=== PATIENT | female | born 1965 | race Caucasian/White ===

== ENCOUNTER 2017-07-22 05:26 | Emergency (ER) | payer BC ==
[~2017-07-22] VITALS: Ht 167.6 cm; Wt 127.0 kg
--- NOTE | ~2017-07-22 | EKG ---
[place] [address] [address] [facility] [address] ELECTROCARDIOGRAM REPORT Name: ESTIVEN EMMANUEL Room #: [facility] [id number] Admission: 07/22/17 Attend Phys: Discharge: 07/22/17 Date of : 61 Report #: [id number] THIS REPORT FOR: //name// [facility] ED Test Date: 2017-07-22 Test Time: 06:08:38 Pat Name: ESTIVEN EMMANUEL Department: Room: Gender: F Tie Cutter: west : 1965 Requested By: Stanley Sherwood Order Number: [id number] MD: Rogers Powers Measurements Intervals [place] Rate: 94 P: 65 [place]: 159 QRS: 30 QRSD: 99 T: 27 QT: 386 QTc: 483 Interpretive Statements Sinus rhythm with atrial premature complexes RSR' in V1 or V2, right VCD Compared to ECG 04/29/2017 02:44:53 nonspecific change in the ST and T-wave segments Atrial premature complexes are now present Electronically Signed On 07-22-2017 8:42:14 GRAIN MILL PRODUCTS INSPECTOR by Rogers Powers [email or web address] <ELECTRONICALLY SIGNED> By: Rogers Powers MD, [facility] 07/22/17 [phone] 0608 Rogers Powers MD, [facility] /EPI
[~2017-07-22 05:26] MED LIST: ADDERALL XR 2020 MG PO; ALBUTEROL INHAL17 GM IH; ALBUTEROL SUL5 MG/M1 INH; ALBUTEROL2.5 MG/31 IH; ALPRAZOLAM 0.50.5 M1 OR; ALPRAZOLAM 0.50.5 M1 PO; ALPRAZOLAM 0.50.5 MG PO; ALPRAZOLAM ER3 MG PO; ALPRAZOLAM PO; AMOXICILLIN875 MG PO; AVELOX 400 MG400 MG PO; AZITHROMYCIN 2250 MG; CELEXA10 MG PO; CHLORPROMAZINE100 MG PO; COLACE 100 MG100 MG PO; COMBIVENT INH; COUMADIN 2.5MG2.5 M1 PO; COUMADIN 4 MG TA4 M1 PO; COUMADIN 5 MG TA5 M1 PO; DESYREL100 MG PO; DESYREL50 MG PO; DIFLUCAN; DIFLUCAN PO; DILAUDID 4 MG TA4 M1 PO; DILAUDID8 MG PO; DOXYCYCLINE 10100 MG PO; DULERA 100 MCG/13 GM IH; DULERA 100 MCG/13 GM INH; DUONEB 2.5-0.5 M3 ML OR; ENDOCET 10-3251 EACH PO; ENOXAPARIN100 MG/1 M SC; FLEXERIL PO; FLONASE 0.05%50 MCG NASAL; FUROSEMIDE 20 M20 MG PO; HYDROCODON-ACE1 EAC5 PO; KEFLEX500 M1 PO; KEFLEX500 MG PO; LASIX 20 MG TAB20 MG PO; LASIX 40 MG TAB40 M2 PO; LASIX 40 MG TAB40 MG GT; LEVOTHYROXIN0.112 M1; LYRICA 75 MG CA75 MG PO; LYRICA PO; LYRICA200 MG PO; MORPHINE SULFAT60 M2 PO; MUCINEX600 MG PO; NORCO 5-325 TA1 EACH PO; OMEPRAZOLE10 MG; OMEPRAZOLE40 MG OR; OPANA ER40 M1 PO; OPANA ER40 MG PO; OPANA10 MG; OPANA10 MG PO; OS-CAL ULTRA T1 EACH PO; OXYCODON-ACETA1 EAC1; OXYCONTIN10 M1 PO; PEPCID40 MG PO; PERCOCET 10-321 EACH PO; POTASSIUM CHLO10 ME1 PO; POTASSIUM20 PO; PREDNISONE 20 M20 MG PO; PREDNISONE 5 MG5 M1; PRILOSEC40 MG PO; PRISTIQ50 M1; PRISTIQ50 MG OR; PRISTIQ50 MG PO; PROAIR HFA8.5 GM INH; PROMETHAZINE HC25 M2 PO; PROVENTIL; RESTORIL30 MG PO; RESTORIL7.5 MG PO; RISPERDAL 1 MG T1 MG PO; RISPERDAL2 MG PO; RISPERDAL4 M1 PO; SINGULAIR 10 MG10 M1 PO; SYNTHROID100 MCG PO; TESSALON PERLE100 MG PO; TIZANIDINE HCL4 M1 PO; TIZANIDINE HCL4 MG PO; TRAZODONE 150150 M1 OR; TRAZODONE HCL PO; TRAZODONE HCL100 MG PO; Trazodone PO; VENTOLIN HFA 1818 GM INH; VENTOLIN HFA INH8 GM IH; VICODIN 5-5001 EACH PO; XANAX 0.5 MG0.5 M1 PO; XANAX 0.5 MG0.5 MG PO; XANAX XR1 MG PO; XANAX XR3 MG PO; ZANAFLEX4 MG PO; ZOLOFT100 MG PO
[2017-07-22] MEDS ORDERED: DOXYCYCLINE 10100 MG PO (06:28)
[2017-07-22] MEDS ORDERED: OXYCODONE HCL 55 MG PO (06:28)
[2017-07-22] MEDS ORDERED: TESSALON PERLE100 MG PO (06:29)
[2017-07-22 06:56] VITALS: BP 153/79
== END 2017-07-22 06:50 | disposition home or self-care (01) ==
LOC: ER 05:26
DX: J06.9 Acute upper respiratory infection, unspecified (principal); J45.909 Unspecified asthma, uncomplicated; K21.9 Gastro-esophageal reflux disease without esophagitis; Z87.01 Personal history of pneumonia (recurrent); E03.9 Hypothyroidism, unspecified; M19.90 Unspecified osteoarthritis, unspecified site; Z90.49 Acquired absence of other specified parts of digestive tract; Z90.710 Acquired absence of both cervix and uterus; K58.9 Irritable bowel syndrome, unspecified; Z87.891 Personal history of nicotine dependence; Z88.6 Allergy status to analgesic agent; Z88.8 Allergy status to other drugs, medicaments and biological substances

== ENCOUNTER 2017-07-23 03:58 | Inpatient (IN) | payer BC ==
[~2017-07-23] VITALS: Ht 167.6 cm; Wt 127.0 kg
--- NOTE | ~2017-07-23 | EKG ---
[address] [place] [address] ELECTROCARDIOGRAM REPORT Name: ESTIVEN EMMANUEL Room #: 417-I ADM IN M.R.#: [id number] Admission: 07/23/17 Attend Phys: Abel Saldana MD Discharge: Date of : 61 Report #: [id number] THIS REPORT FOR: //name// [facility] ED Test Date: 2017-07-23 Test Time: 04:46:49 Pat Name: ESTIVEN EMMANUEL Department: Room: [facility] Gender: F Home Health Outreach Coordinator: SLIM : 1965 Requested By: Sky Pascal Order Number: [id number] MD: Rogers Powers Measurements Intervals [place] Rate: 87 P: 33 SD: 131 QRS: 15 QRSD: 103 T: 22 QT: 416 QTc: 501 Interpretive Statements Sinus rhythm Nonspecific ST and T wave abnormality Prolonged QT interval Compared to ECG 07/22/2017 06:08:38 Low QRS voltage now present Prolonged QT interval now present Atrial premature complex(es) no longer present Electronically Signed On 07-23-2017 9:12:47 MAMMALOGIST by Rogers Powers [email or web address] <ELECTRONICALLY SIGNED> By: Rogers Powers MD, FACC 07/23/17 0912 0446 0446 Rogers Powers MD, [facility] /EPI
[~2017-07-23 03:58] MED LIST changes: +OXYCODONE HCL 55 MG PO
[2017-07-23 04:00] VITALS: BP 159/88
[2017-07-23 04:34] LABS: BE(vivo) 0.9 mmol/L (-2 to +3); PCO2 48.7 mmHg (35.0-45.0); PO2 59.7 mmHg (80.0-100.0); pH 7.361 (7.360-7.450); sO2 89.7 % (92.0-98.0)
[2017-07-23 04:53] LABS: ABSOLUTE NEUTROPHILS 5.5 thou/uL (1.4-8.2); BASOPHILS 0.6 % (0.0-2.0); EOSINOPHILS 1.5 % (0.0-3.0); HEMATOCRIT 35.9 % (37.0-47.0); HEMOGLOBIN 12.2 gm/dL (12.0-15.0); LYMPHOCYTES 25.1 % (24.0-44.0); MCH 31.1 pg (26.0-34.0); MCHC 33.9 g/dL (28.0-37.0); MCV 91.7 fL (80.0-100.0); MONOCYTES 8.6 % (1.0-8.0); PLATELET COUNT 169 thou/uL (150-400); POLYS 64.2 % (36.0-66.0); RBC 3.92 mil/uL (4.20-5.00); RDW 13.7 % (10.5-14.5); WBC 8.6 thou/uL (4.0-11.0)
[2017-07-23 05:03] LABS: ANION GAP 8 mmol/L (7-16); BUN 10 mg/dL (7-18); CALCIUM 8.8 mg/dL (8.5-10.1); CHLORIDE 104 mmol/L (98-107); CO2 29 mmol/L (21-32); CREATININE 0.7 mg/dL (0.6-1.0); GLUCOSE 143 mg/dL (74-106); POTASSIUM 3.8 mmol/L (3.5-5.1); SODIUM 141 mmol/L (136-145)
[2017-07-23 05:11] LABS: TROPONIN-I < 0.04 ng/mL (<0.06)
[2017-07-23 06:27] VITALS: BP 129/47
[2017-07-23 07:20] VITALS: BP 120/62
[2017-07-23 16:15] VITALS: BP 110/60
[2017-07-23 19:12] VITALS: BP 119/67
[2017-07-24 02:54] VITALS: BP 122/66
[2017-07-24 04:29] LABS: HEMATOCRIT 36.9 % (37.0-47.0); HEMOGLOBIN 12.4 gm/dL (12.0-15.0); MCH 30.8 pg (26.0-34.0); MCHC 33.6 g/dL (28.0-37.0); MCV 91.6 fL (80.0-100.0); RBC 4.02 mil/uL (4.20-5.00); WBC 9.1 thou/uL (4.0-11.0)
[2017-07-24 04:38] LABS: CALCIUM 8.6 mg/dL (8.5-10.1); CREATININE 0.8 mg/dL (0.6-1.0); POTASSIUM 3.9 mmol/L (3.5-5.1)
[2017-07-24 07:18] VITALS: BP 119/60
[2017-07-24 16:00] VITALS: BP 121/56
[2017-07-24 19:34] VITALS: BP 95/95
[2017-07-24 22:35] VITALS: BP 111/57
[2017-07-25 04:51] VITALS: BP 130/69
[2017-07-25 08:00] VITALS: BP 126/65
[2017-07-25 16:00] VITALS: BP 141/72
[2017-07-25 19:41] VITALS: BP 137/70
[2017-07-26 04:05] VITALS: BP 128/73
[2017-07-26 07:57] VITALS: BP 131/72
[2017-07-26] MEDS ORDERED: KEFLEX500 M1 PO (08:50)
[2017-07-26] MEDS ORDERED: AZITHROMYCIN 2250 MG PO (08:50)
[2017-07-26] MEDS ORDERED: VENTOLIN HFA 1818 GM INH (08:50)
[2017-07-26] MEDS ORDERED: MEDROL DOSPAK21 TA1 PO (08:51)
[2017-07-26 10:18] VITALS: BP 131/72
== END 2017-07-26 10:40 | disposition home or self-care (01) | DRG 189 ==
LOC: ER 03:58 → 4E 05:43 → EROBS 05:43 → 4E 06:28
PROVIDERS: Emergency Medicine; Hospitalist
DX: J96.01 Acute respiratory failure with hypoxia (principal); J45.901 Unspecified asthma with (acute) exacerbation; J20.9 Acute bronchitis, unspecified; F41.8 Other specified anxiety disorders; Z96.643 Presence of artificial hip joint, bilateral; M06.9 Rheumatoid arthritis, unspecified; G89.29 Other chronic pain; E03.9 Hypothyroidism, unspecified; I10 Essential (primary) hypertension; K58.9 Irritable bowel syndrome, unspecified; Z87.891 Personal history of nicotine dependence; Z88.8 Allergy status to other drugs, medicaments and biological substances; Z79.899 Other long term (current) drug therapy; Z86.711 Personal history of pulmonary embolism; Z93.3 Colostomy status; Z87.01 Personal history of pneumonia (recurrent); Z90.710 Acquired absence of both cervix and uterus
CPT/HCPCS: 10183

== ENCOUNTER 2017-11-04 10:28 | Emergency (ER) | payer BC ==
[~2017-11-04] VITALS: Ht 167.6 cm; Wt 127.0 kg
--- NOTE | ~2017-11-04 | EKG ---
[place] [address] [facility] [place] [address] ELECTROCARDIOGRAM REPORT Name: ESTIVEN EMMANUEL Room #: [facility]GEEM[facility]lla#: [id number] Admission: 11/04/17 Attend Phys: Discharge: Date of : 61 Report #: [id number] THIS REPORT FOR: //name// [facility] ED Test Date: 2017-11-04 Test Time: 10:42:30 Pat Name: ESTIVEN EMMANUEL Department: Room: Gender: F Corporate Development Manager: HUNTER : 1965 Requested By: Kumar Lopez Order Number: [id number] MD: Rogers Powers Measurements Intervals [place] Rate: 92 P: 45 [place]: 133 QRS: 18 QRSD: 88 T: 32 QT: 402 QTc: 498 Interpretive Statements Sinus rhythm Borderline prolonged QT interval Compared to ECG 07/23/2017 04:46:49 No significant change was found Electronically Signed On 11-04-2017 12:54:02 CDT by Rogers Powers [email or web address] <ELECTRONICALLY SIGNED> By: Rogers Powers MD, [facility] 11/04/17 1254 1042 1042 Rogers Powers MD, FACC /EPI
[~2017-11-04 10:28] MED LIST changes: +AZITHROMYCIN 2250 MG PO; +MEDROL DOSPAK21 TA1 PO
[2017-11-04 12:28] LABS: ABSOLUTE NEUTROPHILS 3.9 thou/uL (1.4-8.2); BASOPHILS 0.9 % (0.0-2.0); EOSINOPHILS 1.1 % (0.0-3.0); HEMATOCRIT 41.5 % (37.0-47.0); HEMOGLOBIN 14.4 gm/dL (12.0-15.0); LYMPHOCYTES 29.2 % (24.0-44.0); MCH 30.8 pg (26.0-34.0); MCHC 34.6 g/dL (28.0-37.0); MONOCYTES 9.3 % (1.0-8.0); PLATELET COUNT 227 thou/uL (150-400); POLYS 59.5 % (36.0-66.0); RBC 4.67 mil/uL (4.20-5.00); RDW 13.6 % (10.5-14.5); WBC 6.6 thou/uL (4.0-11.0)
[2017-11-04 12:36] LABS: ALBUMIN 4.1 g/dL (3.4-5.0); DIRECT BILIRUBIN 0.2 mg/dL (<0.1-0.3); TOTAL BILIRUBIN 0.4 mg/dL (<0.1-1.0); TOTAL PROTEIN 7.4 g/dL (6.4-8.2)
[2017-11-04 12:44] LABS: ANION GAP 9 mmol/L (7-16); BUN 9 mg/dL (7-18); CALCIUM 9.4 mg/dL (8.5-10.1); CHLORIDE 102 mmol/L (98-107); CO2 26 mmol/L (21-32); CREATININE 0.8 mg/dL (0.6-1.0); GLUCOSE 102 mg/dL (74-106); POTASSIUM 3.8 mmol/L (3.5-5.1); SODIUM 137 mmol/L (136-145); TROPONIN-I < 0.04 ng/mL (<0.06)
[2017-11-04] MEDS ORDERED: UNITHROID200 MCG PO (13:16)
[2017-11-04] MEDS ORDERED: VICTOZA0.6 MG/0.1 SUBQ (13:18)
[2017-11-04] MEDS ORDERED: MORPHINE SULFAT15 M3 PO ×2 (13:20→13:22)
[2017-11-04] MEDS ORDERED: ZPAK PO (14:26)
[2017-11-04 14:37] VITALS: BP 115/66
== END 2017-11-04 14:38 | disposition home or self-care (01) ==
LOC: ER 10:28
PROVIDERS: Physician Assistant
DX: J18.9 Pneumonia, unspecified organism (principal); R10.30 Lower abdominal pain, unspecified; J45.909 Unspecified asthma, uncomplicated; F32.9 Major depressive disorder, single episode, unspecified; F41.9 Anxiety disorder, unspecified; K21.9 Gastro-esophageal reflux disease without esophagitis; E03.9 Hypothyroidism, unspecified; Z87.01 Personal history of pneumonia (recurrent); Z88.5 Allergy status to narcotic agent; Z88.8 Allergy status to other drugs, medicaments and biological substances

== ENCOUNTER → 2017-12-30 | Outpatient (CLI) | payer BC ==
[~2017-12-30] MED LIST changes: +MORPHINE SULFAT15 M3 PO; +UNITHROID200 MCG PO; +VICTOZA0.6 MG/0.1 SUBQ; +ZPAK PO
== END ==
LOC: CAT 10:48
DX: K76.0 Fatty (change of) liver, not elsewhere classified (principal); N20.0 Calculus of kidney; K43.9 Ventral hernia without obstruction or gangrene; Z90.49 Acquired absence of other specified parts of digestive tract

== ENCOUNTER → 2018-04-22 | Outpatient (CLI) | payer BC | LOC: RAD 16:53 | DX: R91.8 Other nonspecific abnormal finding of lung field (principal) ==

== ENCOUNTER 2018-05-18 19:47 | Emergency (ER) | payer BC ==
[~2018-05-18] VITALS: Ht 165.1 cm; Wt 96.6 kg
--- NOTE | ~2018-05-18 | EKG ---
[address] [place] [address] ELECTROCARDIOGRAM REPORT Name: ESTIVEN EMMANUEL Room #: DEP [facility]#: [id number] Admission: 05/18/18 Attend Phys: Discharge: 05/18/18 Date of : 61 Report #: [id number] THIS REPORT FOR: //name// [facility] ED Test Date: 2018-05-18 Test Time: 19:52:59 Pat Name: ESTIVEN EMMANUEL Department: Room: Gender: F Missile Pad Mechanic: EDGARD : 1965 Requested By: Leslie Carroll Order Number: [id number] MD: Rogers Powers Measurements Intervals [place] Rate: 97 P: 57 [place]: 155 QRS: -5 QRSD: 102 T: 18 QT: 393 QTc: 500 Interpretive Statements Sinus rhythm RSR' in V1 or V2, right VCD Nonspecific T abnormalities, anterior leads Borderline prolonged QT interval Compared to ECG 11/04/2017 10:42:30 Right ventricular conduction delay is now present Electronically Signed On 05-19-2018 10:50:06 COUNTER INTELLIGENCE TECHNICIAN by Rogers Powers [email or web address] <ELECTRONICALLY SIGNED> By: Rogers Powers MD, FAC 05/19/18 1050 51 51 Rogers Powers MD, [facility] /EPI
[2018-05-18 20:37] LABS: ABSOLUTE NEUTROPHILS 6.5 thou/uL (1.4-8.2); BASOPHILS 0.3 % (0.0-2.0); HEMATOCRIT 37.8 % (37.0-47.0); HEMOGLOBIN 13.3 gm/dL (12.0-15.0); LYMPHOCYTES 12.8 % (24.0-44.0); MCH 30.5 pg (26.0-34.0); MCHC 35.1 g/dL (28.0-37.0); MCV 87.1 fL (80.0-100.0); MONOCYTES 1.9 % (1.0-8.0); PLATELET COUNT 183 thou/uL (150-400); RBC 4.34 mil/uL (4.20-5.00); RDW 13.1 % (10.5-14.5); WBC 7.7 thou/uL (4.0-11.0)
[2018-05-18 20:48] LABS: ANION GAP 6 mmol/L (7-16); BUN 8 mg/dL (7-18); CALCIUM 9.5 mg/dL (8.5-10.1); CHLORIDE 96 mmol/L (98-107); CO2 28 mmol/L (21-32); CREATININE 0.9 mg/dL (0.6-1.0); GLUCOSE 268 mg/dL (74-106); POTASSIUM 3.6 mmol/L (3.5-5.1); SODIUM 130 mmol/L (136-145)
[2018-05-18 20:57] LABS: ALBUMIN 3.4 g/dL (3.4-5.0); DIRECT BILIRUBIN < 0.1 mg/dL (<0.1-0.3); LIPASE 86 U/L (73-393); SGOT 20 U/L (15-37); SGPT 21 U/L (30-65); TOTAL BILIRUBIN 0.4 mg/dL (<0.1-1.0); TOTAL PROTEIN 7.1 g/dL (6.4-8.2); TROPONIN-I <0.06 ng/mL (<0.06)
[2018-05-18 22:31] LABS: URINE BILIRUBIN NEGATIVE (Negative); URINE BLOOD NEGATIVE (Negative); URINE CLARITY CLEAR; URINE COLOR YELLOW; URINE GLUCOSE-RANDOM* 1+ (Negative); URINE KETONES NEGATIVE (Negative); URINE NITRITE-REFLEX NEGATIVE (Negative); URINE PROTEIN (DIPSTICK) NEGATIVE (Negative); URINE SPECIFIC GRAVITY <= 1.005 (1.005-1.035); URINE UROBILINOGEN 0.2 E.U./dl (0.2-1.0)
[2018-05-18 22:33] LABS: URINE LEUKOCYTES-REFLEX 2+ (Negative)
[2018-05-18 22:42] LABS: BACTERIA-REFLEX 1-9 Few /HPF (None Seen); CASTS None Seen /LPF (None Seen); CRYSTALS None Seen /LPF (None Seen); MUCUS 0-3 Light strn/LPF (None Seen); SQUAMOUS 4-10 Moderate /LPF (0-3); URINE RBC 3-10 Few /HPF (0-2); URINE WBC-REFLEX 6-15 Few /HPF (0-5)
[2018-05-18 23:53] VITALS: BP 145/86
== END 2018-05-18 23:56 | disposition home or self-care (01) ==
LOC: ER 19:47
PROVIDERS: Emergency Medicine
DX: R11.10 Vomiting, unspecified (principal); R07.89 Other chest pain; R19.7 Diarrhea, unspecified; R06.00 Dyspnea, unspecified; J45.909 Unspecified asthma, uncomplicated; F32.9 Major depressive disorder, single episode, unspecified; F41.9 Anxiety disorder, unspecified; K21.9 Gastro-esophageal reflux disease without esophagitis; E03.9 Hypothyroidism, unspecified; M19.90 Unspecified osteoarthritis, unspecified site; Z90.49 Acquired absence of other specified parts of digestive tract; Z90.710 Acquired absence of both cervix and uterus; Z96.643 Presence of artificial hip joint, bilateral; Z87.891 Personal history of nicotine dependence; Z88.5 Allergy status to narcotic agent; Z88.6 Allergy status to analgesic agent; Z88.8 Allergy status to other drugs, medicaments and biological substances

== ENCOUNTER 2018-05-21 14:35 | Emergency (ER) | payer BC ==
[~2018-05-21] VITALS: Ht 165.1 cm; Wt 104.3 kg
--- NOTE | ~2018-05-21 | EKG ---
[place] [address] [facility] [place] [address] ELECTROCARDIOGRAM REPORT Name: ESTIVEN EMMANUEL Room #: DEP Haley#: [id number] Admission: 05/21/18 Attend Phys: Discharge: 05/21/18 Date of : 61 Report #: [id number] THIS REPORT FOR: //name// [facility] ED Test Date: 2018-05-21 Test Time: 14:48:28 Pat Name: ESTIVEN EMMANUEL Department: Room: Gender: F Miller Helper: IVAN : 1965 Requested By: Farida Gomez Order Number: [id number] MD: Darrian Gutierrez Measurements Intervals [place] Rate: 63 P: 27 [place]: 149 QRS: 3 QRSD: 91 T: 11 QT: 433 QTc: 444 Interpretive Statements Sinus Rhythm NS ST/T wave changes Compared to ECG 05/18/2018 19:52:59 alireza significant changes Electronically Signed On 05-22-2018 23:35:40 SELF PAY REPRESENTATIVE by Darrian Gutierrez [email or web address] <ELECTRONICALLY SIGNED> By: Darrian Gutierrez MD 05/22/18 2335 1448 1448 Darrian Gutierrez MD /[facility]
[2018-05-21 15:13] LABS: ABSOLUTE NEUTROPHILS 6.1 thou/uL (1.4-8.2); BASOPHILS 0.6 % (0.0-2.0); EOSINOPHILS 1.2 % (0.0-3.0); HEMOGLOBIN 14.9 gm/dL (12.0-15.0); LYMPHOCYTES 24.7 % (24.0-44.0); MCH 30.5 pg (26.0-34.0); MCHC 34.6 g/dL (28.0-37.0); MCV 88.1 fL (80.0-100.0); MONOCYTES 8.6 % (1.0-8.0); PLATELET COUNT 229 thou/uL (150-400); POLYS 64.9 % (36.0-66.0); RBC 4.87 mil/uL (4.20-5.00); RDW 13.3 % (10.5-14.5); WBC 9.5 thou/uL (4.0-11.0)
[2018-05-21 15:26] LABS: ANION GAP 11 mmol/L (7-16); BUN 9 mg/dL (7-18); CALCIUM 10.3 mg/dL (8.5-10.1); CHLORIDE 106 mmol/L (98-107); CO2 25 mmol/L (21-32); CREATININE 0.8 mg/dL (0.6-1.0); GLUCOSE 86 mg/dL (74-106); POTASSIUM 3.9 mmol/L (3.5-5.1); SODIUM 142 mmol/L (136-145)
[2018-05-21 15:31] LABS: ALBUMIN 4.1 g/dL (3.4-5.0); SGOT 31 U/L (15-37); SGPT 38 U/L (30-65); TOTAL BILIRUBIN 0.5 mg/dL (<0.1-1.0); TOTAL PROTEIN 8.3 g/dL (6.4-8.2); TROPONIN-I <0.06 ng/mL (<0.06)
[2018-05-21] MEDS ORDERED: OZEMPIC1 MG/0.75 SUBQ (15:51)
[2018-05-21] MEDS ORDERED: ZOHYDRO ER30 M1 PO (15:51)
[2018-05-21] MEDS ORDERED: NORCO 10-325 T1 EACH PO (15:52)
[2018-05-21] MEDS ORDERED: TESSALON PERLE100 MG PO (16:37)
[2018-05-21] MEDS ORDERED: CEPACOL SORE T1 EAC7 PO (16:37)
[2018-05-21] MEDS ORDERED: FLONASE ALLERG9.9 ML NASAL (16:37)
[2018-05-21 17:38] VITALS: BP 158/77
== END 2018-05-21 17:20 | disposition home or self-care (01) ==
LOC: ER 14:35
PROVIDERS: Student in an Organized Health Care Education/Training Program
DX: J06.9 Acute upper respiratory infection, unspecified (principal); J45.909 Unspecified asthma, uncomplicated; F32.9 Major depressive disorder, single episode, unspecified; F41.9 Anxiety disorder, unspecified; K21.9 Gastro-esophageal reflux disease without esophagitis; M19.90 Unspecified osteoarthritis, unspecified site; Z87.01 Personal history of pneumonia (recurrent); E03.9 Hypothyroidism, unspecified; Z90.49 Acquired absence of other specified parts of digestive tract; Z96.643 Presence of artificial hip joint, bilateral; Z87.891 Personal history of nicotine dependence; Z88.5 Allergy status to narcotic agent; Z91.09 Other allergy status, other than to drugs and biological substances; Z88.8 Allergy status to other drugs, medicaments and biological substances

== ENCOUNTER 2018-11-16 05:33 | Inpatient (IN) | payer BC ==
[2018-11-07 08:55] LABS: HEMATOCRIT 39.5 % (37.0-47.0); HEMOGLOBIN 13.4 gm/dL (12.0-15.0); MCH 29.5 pg (26.0-34.0); MCHC 33.9 g/dL (28.0-37.0); RBC 4.54 mil/uL (4.20-5.00); RDW 13.3 % (10.5-14.5); WBC 6.4 thou/uL (4.0-11.0)
[2018-11-07 09:06] LABS: PROTIME 10.3 Seconds (9.3-11.4)
[2018-11-07 09:16] LABS: ALBUMIN 3.6 g/dL (3.4-5.0); CALCIUM 8.7 mg/dL (8.5-10.1); CREATININE 1.1 mg/dL (0.6-1.0)
[2018-11-07 09:48] LABS: URINE BILIRUBIN NEGATIVE (Negative); URINE BLOOD NEGATIVE (Negative); URINE COLOR YELLOW; URINE GLUCOSE-RANDOM* NEGATIVE (Negative); URINE KETONES NEGATIVE (Negative); URINE NITRITE-REFLEX NEGATIVE (Negative); URINE PROTEIN (DIPSTICK) NEGATIVE (Negative); URINE UROBILINOGEN 0.2 E.U./dl (0.2-1.0)
[2018-11-07 09:49] LABS: URINE CLARITY HAZY; URINE LEUKOCYTES-REFLEX 2+ (Negative)
[2018-11-07 10:13] LABS: SQUAMOUS >10 Many /LPF (0-3)
[2018-11-07 10:14] LABS: CASTS None Seen /LPF (None Seen); CRYSTALS None Seen /LPF (None Seen)
[2018-11-07 10:15] LABS: URINE RBC None Seen /HPF (0-2)
--- NOTE | 2018-11-07 18:04 | EKG ---
[address] [address] ELECTROCARDIOGRAM REPORT Name: ESTIVEN EMMANUEL Room #: PRE IN [facility].#: [id number] ������������������ Admission: ������������������ Attend Phys: Ray Cruz MD Discharge: ������������������ Date of : 61 Report #: [id number] ����������������������������������������������������������������� [id number] THIS REPORT FOR: //name// [facility] Test Date: 2018-11-07 Test Time: 08:45:37 Pat Name: ESTIVEN EMMANUEL Department: Room: Gender: F Pharmacy Operations Specialist: Girish MALIK : 1965 Requested By: Ray Cruz Order Number: [id number] MD: Rayshawn Dailey Measurements Intervals [place] Rate: 62 P: 20 [place]: 146 QRS: 13 QRSD: 111 T: 29 QT: 453 QTc: 460 Interpretive Statements Sinus rhythm Compared to ECG 05/21/2018 14:48:28 No significant changes Electronically Signed On 11-07-2018 18:04:30 CDT by Rayshawn Dailey [email or web address] ��������������������������������������������� <ELECTRONICALLY SIGNED> ���������������������������������������� By: Rayshawn Dailey MD ��������������������������������������������� 11/07/18 1804 0845 0845 Rayshawn Dailey MD /[facility]
[2018-11-08 11:10] LABS: GLYCOHEMOGLOBIN (HGB A1C) 5.5 % (4.8-5.6)
[~2018-11-16] VITALS: Ht 167.6 cm; Wt 108.9 kg
--- NOTE | ~2018-11-16 | O ---
[facility] [place] [address] OPERATIVE REPORT Name: ESTIVEN MAX Room #: 453-P [facility] IN M.R.#: [id number] Admission: 11/16/18 ������������������ Attend Phys: Ray Cruz MD Discharge: 11/17/18 ������������������ Date of : 61 Report #: [id number] THIS REPORT FOR: //name// CC: PETER RHODES Physician staff Ray Cruz DATE OF SERVICE: 11/16/2018 PREOPERATIVE DIAGNOSIS: Right knee osteoarthritis. POSTOPERATIVE DIAGNOSIS: Right knee osteoarthritis. PROCEDURE: Right total knee arthroplasty using Navio Robotic assistance. SURGEON: Ray Cruz MD IRRIGATOR GRAVITY FLOW: Kristyn Hood PA-C INDICATION FOR IRRIGATOR GRAVITY FLOW: Throughout the case, extensive retraction and manipulation of the knee was required. This was afforded to me by my records assistant. ANESTHESIA: LMA with an adductor canal block. IMPLANTS: Max and Nephew size Journey II BCS posterior stabilized Oxinium femur, a size 4 tibia, size 10 polyethylene and size 35 patella. TOURNIQUET TIME: 64 minutes. ESTIMATED BLOOD LOSS: 25 mL. COMPLICATIONS: None. SPECIMENS: None. CONDITION UPON LEAVING THE OPERATING ROOM: Stable. INDICATIONS FOR PROCEDURE: The patient is a 53-year-old female with right knee osteoarthritis. She failed conservative measures for this and after discussion with her, she elected for right total knee arthroplasty. DESCRIPTION OF PROCEDURE: Risks, benefits, alternatives, complications were discussed in detail with the patient including but not limited to risk of anesthesia; risk of damage to nerves, arteries, blood vessels; risk for infection, bleeding; risk for continued knee pain and need for reoperation. Informed consent was obtained from the patient. Right knee was appropriately [facility] [address] [place] [address] OPERATIVE REPORT Name: ESTIVEN MAX Room #: 453-P DIS IN M.R.#: [id number] Admission: 11/16/18 ������������������ Attend Phys: Ray Cruz MD Discharge: 11/17/18 ������������������ Date of : 61 Report #: [id number] marked in the preoperative holding area. IV Ancef was given for preoperative antibiotics. Adductor canal block was placed by Anesthesia. She was brought to the operating room and placed in supine position on operating room table. LMA anesthesia was induced without complication. Tourniquet was placed on the right thigh. Right lower extremity was prepped and draped in normal sterile fashion. Timeout was performed, properly identifying the patient and procedure as well as the instrumentation and implants. All in the operating room were in agreement. Right lower extremity was exsanguinated, tourniquet was inflated. Tourniquet time was 64 minutes. Standard midline approach to knee was made with 10 blade through the skin. Dissection was taken down sharply to the fascia, deep flaps were developed medially and laterally. Fresh 10 blade was used to make a medial parapatellar arthrotomy and the knee was inspected. There was severe medial compartment and moderate ADDENDUM DESCRIPTION OF PROCEDURE: Knee was inspected and found to have severe medial compartment osteoarthritis. Lateral and patellofemoral compartments demonstrated moderate osteoarthritis. It was decided to proceed with total knee arthroplasty. ACL and PCL were removed sharply. Reference pins were then placed in the femur and the tibia for the Navio System and the knee was digitally mapped using the Amtec Robotic System. We sized the size 6 femur and a size 4 tibia with a 10 polyethylene. After acceptance of the intraoperative plan, the distal femoral cut was made with Navio bur. The femoral chamfer cutting guide was then placed and chamfer cuts on the femur was made. After this, attention was turned to the tibia. The tibial resection guide was pinned in place using the Navio system for placement of the guide and the tibial resection was made. After this, flexion and extension gaps were checked and found to have good balance in flexion and extension both medially and laterally. Tibia was sized, found to be a size 4. Size 4 tibial trial was placed and then punched. A size 6 femoral trial was placed and the box cut was made. This was then trialed with a size 10 polyethylene. Knee was taken through range of motion, found to have a millimeter of laxity medially throughout range of motion, a 1.5 to 2 mm laterally throughout range of motion and this was felt to be acceptable. A 9 mm was taken off the posterior surface of the patella and a size 35 patellar trial was placed. Knee was taken through range of motion, found to be stable, found to have good balance as well as patellar tracking. Trial components were removed. Bony ends were thoroughly irrigated with normal saline. A final size 4 tibia, size 6 Journey II BCS Oxinium femur and a size 35 patella were cemented in place using standard cementation techniques. While the cement cured, a periarticular injection consisting of morphine, ropivacaine, epinephrine and Toradol was placed around the knee joint capsule. After the cement cured, tourniquet was deflated. Hemostasis was obtained with Bovie cautery. A final size 10 polyethylene was placed. A gram of vancomycin was placed deep in the joint. Fascia was closed with 0 Vicryl, skin was closed with [address] [address] OPERATIVE REPORT Name: ESTIVEN MAX Room #: 453-P [facility] IN Haley#: [id number] Admission: 11/16/18 ������������������ Attend Phys: Ray Cruz MD Discharge: 11/17/18 ������������������ Date of : 61 Report #: [id number] 2-0 Vicryl, 3-0 Monocryl. Dermabond and a DAVID dressing were applied. The patient tolerated this procedure well and went to recovery room under care of anesthesia postoperatively. Robotic System. We sized the size 6 femur and a size 4 tibia with a 10 polyethylene. After acceptance of the intraoperative plan, the distal femoral cut was made with Navio bur. The femoral chamfer cutting guide was then placed and chamfer cuts on the femur was made. After this, attention was turned to the tibia. The tibial resection guide was pinned in place using the Navio system for placement of the guide and the tibial resection was made. After this, flexion and extension gaps were checked and found to have good balance in flexion and extension both medially and laterally. Tibia was sized, found to be a size 4. Size 4 tibial trial was placed and then punched. A size 6 femoral trial was placed and the box cut was made. This was then trialed with a size 10 polyethylene. Knee was taken through range of motion, found to have a millimeter of laxity medially throughout range of motion, a 1.5 to 2 mm laterally throughout range of motion and this was felt to be acceptable. A 9 mm was taken off the posterior surface of the patella and a size 35 patellar trial was placed. Knee was taken through range of motion, found to be stable, found to have good balance as well as patellar tracking. Trial components were removed. Bony ends were thoroughly irrigated with normal saline. A final size 4 tibia, size 6 Journey II BCS Oxinium femur and a size 35 patella were cemented in place using standard cementation techniques. While the cement cured, a periarticular injection consisting of morphine, ropivacaine, epinephrine and Toradol was placed around the knee joint capsule. After the cement cured, tourniquet was deflated. Hemostasis was obtained with Bovie cautery. A final size 10 polyethylene was placed. A gram of vancomycin was placed deep in the joint. Fascia was closed with 0 Vicryl, skin was closed with 2-0 Vicryl, 3-0 Monocryl. Dermabond and a DAVID dressing were applied. The patient tolerated this procedure well and went to recovery room under care of anesthesia postoperatively. ��������������������������������������������� ���������������������������������������� By: ��������������������������������������������� 0912 0923 Ray Cruz MD /nt
[~2018-11-16 05:33] MED LIST changes: +ALPRAZOLAM XR2 MG PO; +CEPACOL SORE T1 EAC7 PO; +DEXTROAMP-AMPHE25 MG PO; +FLONASE ALLERG9.9 ML NASAL; +HYDROCORTISONE5 MG PO; +LYRICA150 MG PO; +MORPHINE SULFAT15 MG PO; +MS CONTIN15 MG PO; +NORCO 10-325 T1 EACH PO; +NORDITROPI15 MG/1.5 SUBQ; +OZEMPIC1 MG/0.75 SUBQ; +PROTONIX40 M1 PO; +ZOHYDRO ER30 M1 PO
[2018-11-16 12:50] VITALS: BP 124/58
[2018-11-16 16:36] VITALS: BP 161/79
[2018-11-16 16:52] VITALS: BP 161/83
--- NOTE | 2018-11-16 19:10 | NUR ---
ADM PT CAME IN FROM SURGERY. VSS, PAIN CONTROLLED BY MEDS. HOSPITALIST CONSULTED FOR MEDICAL MANAGEMENT. WILL CONTINUE TO MONITOR
[2018-11-16 19:58] VITALS: BP 147/77
--- NOTE | 2018-11-17 03:20 | NUR ---
ASSUMED CARE AROUND 1900. AXOX4. S/P JOSE WITH . USE WITH ASSIST. PAIN MANAGED PER MD ORDER. IV ATB POST OP STRATED. NO S/S ACUTE DISTRESS NOTED OR REPORTED AT THIS TIME. WILL CONT TO MONITOR FOR ANY CHANGES IN CONDITION.
[2018-11-17 04:07] VITALS: BP 107/54
[2018-11-17 05:36] LABS: HEMATOCRIT 31.2 % (37.0-47.0); HEMOGLOBIN 10.6 gm/dL (12.0-15.0); MCH 29.6 pg (26.0-34.0); MCHC 33.9 g/dL (28.0-37.0); MCV 87.2 fL (80.0-100.0); RBC 3.58 mil/uL (4.20-5.00); WBC 11.4 thou/uL (4.0-11.0)
[2018-11-17 07:04] VITALS: BP 118/56
[2018-11-17 08:30] VITALS: BP 107/54
[2018-11-17] MEDS ORDERED: AMLODIPINE BESYL5 M1 PO (09:39)
[2018-11-17] MEDS ORDERED: TRI-BUFFERED A325 M1 PO (09:39)
[2018-11-17 10:41] VITALS: BP 118/56
[2018-11-17 10:52] VITALS: BP 118/56
--- NOTE | 2018-11-17 11:21 | NUR ---
POD # 1. PAIN WELL CONTROLLED WITH OXYCODONE/APAP. AMBULATED WITH PHYSICAL THERAPY AND TOLERATED WELL. VOIDING WITHOUT DIFFICULTY AND IN ADEQUATE AMOUNT. TOLERATING DIET WELL. PATIENT STATED READY TO GO HOME. DISCHARGE INSTRUCTIONS GIVEN. DISCHARGED HOME IN GOOD CONDITION.
== END 2018-11-17 11:28 | disposition home or self-care (01) | DRG 470 ==
LOC: TBA 05:33 → PRE 05:39 → 4W 16:08 → ENTRNSPT 11-17 11:12 → 4W 11-17 11:28
PROVIDERS: ADMIT Orthopaedic Surgery
PROC: 0SRC069 Replacement of Right Knee Joint with Oxidized Zirconium on Polyethylene Synthetic Substitute, Cemented, Open Approach (ICD-10-PCS; principal; 2018-11-16)
PROC: 8E0Y0CZ Robotic Assisted Procedure of Lower Extremity, Open Approach (ICD-10-PCS; principal; 2018-11-16)
DX: M17.11 Unilateral primary osteoarthritis, right knee (principal); E23.0 Hypopituitarism; E03.9 Hypothyroidism, unspecified; Z96.643 Presence of artificial hip joint, bilateral; E11.9 Type 2 diabetes mellitus without complications; F41.9 Anxiety disorder, unspecified; Z88.8 Allergy status to other drugs, medicaments and biological substances; Z90.710 Acquired absence of both cervix and uterus; Z90.49 Acquired absence of other specified parts of digestive tract; Z85.048 Personal history of other malignant neoplasm of rectum, rectosigmoid junction, and anus; Z85.038 Personal history of other malignant neoplasm of large intestine
CPT/HCPCS: 10047; 50010; 50101; 50415; 50954; 51130; 51225; 53000; 53078; 54118; 55372; 56527; 56528; 57095; 57103; 57110; 57127; 62110; 62900; 64042; 70005

== ENCOUNTER 2018-12-05 19:07 | Emergency (ER) | payer BC ==
[~2018-12-05] VITALS: Ht 167.6 cm; Wt 113.4 kg
[~2018-12-05 19:07] MED LIST changes: +AMLODIPINE BESYL5 M1 PO; +TRI-BUFFERED A325 M1 PO
[2018-12-05 20:30] VITALS: BP 128/64
== END 2018-12-05 20:29 | disposition home or self-care (01) ==
LOC: ER 19:07
DX: S60.221A Contusion of right hand, initial encounter (principal); J45.909 Unspecified asthma, uncomplicated; F41.9 Anxiety disorder, unspecified; F32.9 Major depressive disorder, single episode, unspecified; M06.9 Rheumatoid arthritis, unspecified; K21.9 Gastro-esophageal reflux disease without esophagitis; E03.9 Hypothyroidism, unspecified; K58.9 Irritable bowel syndrome, unspecified; E11.9 Type 2 diabetes mellitus without complications; G47.30 Sleep apnea, unspecified; G43.909 Migraine, unspecified, not intractable, without status migrainosus; Z87.891 Personal history of nicotine dependence; Z90.49 Acquired absence of other specified parts of digestive tract; Z88.4 Allergy status to anesthetic agent; Z90.710 Acquired absence of both cervix and uterus; Z88.8 Allergy status to other drugs, medicaments and biological substances; Z96.643 Presence of artificial hip joint, bilateral; Y04.2XXA Assault by strike against or bumped into by another person, initial encounter; Y92.89 Other specified places as the place of occurrence of the external cause; Y93.89 Activity, other specified; Y99.8 Other external cause status

== ENCOUNTER 2018-12-22 18:56 | Emergency (ER) | payer BC ==
[~2018-12-22] VITALS: Ht 170.2 cm; Wt 122.5 kg
[2018-12-22 22:22] VITALS: BP 129/51
== END 2018-12-22 22:25 | disposition home or self-care (01) ==
LOC: ER 18:56
DX: S63.501A Unspecified sprain of right wrist, initial encounter (principal); S80.01XA Contusion of right knee, initial encounter; S80.212A Abrasion, left knee, initial encounter; J45.909 Unspecified asthma, uncomplicated; F32.9 Major depressive disorder, single episode, unspecified; F41.9 Anxiety disorder, unspecified; K21.9 Gastro-esophageal reflux disease without esophagitis; M19.90 Unspecified osteoarthritis, unspecified site; E03.9 Hypothyroidism, unspecified; E11.9 Type 2 diabetes mellitus without complications; G43.909 Migraine, unspecified, not intractable, without status migrainosus; G47.30 Sleep apnea, unspecified; Z87.891 Personal history of nicotine dependence; Z88.5 Allergy status to narcotic agent; Z88.8 Allergy status to other drugs, medicaments and biological substances; W07.XXXA Fall from chair, initial encounter; Y93.89 Activity, other specified; Y92.89 Other specified places as the place of occurrence of the external cause; Y99.8 Other external cause status